=== PATIENT | female | born 1995 | race Caucasian/White ===

== ENCOUNTER 2018-03-23 17:43 | Emergency (ER) | payer OTHER ==
[2018-03-23] MEDS ORDERED: DEXAMETHASONE 10 MG/ML VIAL ONE (19:10)
--- NOTE | 2018-03-23 19:26 | EDPHYS ---
Physician Documentation [facility] Name: Maddi Silva Age: 23 yrs Sex: Female : 1995 Arrival Date: 03/23/2018 Time: 17:48 Bed 19 Private MD: Andres Lynn ED Physician Aric De La Vega HPI: 03/23 18:42 This 23 yrs old Female presents to ER via Ambulatory with complaints of jmm Fever, Strep Throat. 18:42 The patient reports fever, not measured (subjective). Onset: The symptoms/episode jmm began/occurred 1 day(s) ago. This is a 23 year old female with a history of migraines that presents to the ED with sore throat, headache, weakness beginning last night. Patient states symptoms are similar to previous episodes of strep throat. . Historical: - Allergies: 17:56 PENICILLINS; sv - PMHx: 17:56 Migraines; sv - PSHx: 17:56 None; sv - Immunization history:: Flu vaccine is up to date. - Social history:: Smoking status: Patient/guardian denies using tobacco. - Ebola Screening: : No symptoms or risks identified at this time. ROS: 18:42 Eyes: Negative for injury, pain, redness, and discharge, ENT: Negative for injury, jmm pain, and discharge, Cardiovascular: Negative for chest pain, palpitations, and edema, Respiratory: Negative for shortness of breath, cough, wheezing, and pleuritic chest pain, Abdomen/GI: Negative for abdominal pain, nausea, vomiting, diarrhea, and constipation. 18:42 Constitutional: Positive for fever. 18:42 ENT: Positive for sore throat. 18:42 Neuro: Positive for headache. 18:42 All other systems are negative. Exam: 18:42 Head/Face: atraumatic. Eyes: EOMI, no conjunctival erythema appreciated jmm 18:42 Cardiovascular: Regular rate and rhythm. No edema appreciated Respiratory: Normal respirations, no respiratory distress appreciated Abdomen/GI: Non distended, soft Back: Normal ROM Skin: General appearance color normal MS/ Extremity: Moves all extremities, no obvious deformities appreciated, no edema noted to the lower extremities Neuro: Awake and alert, normal gait Psych: Behavior is normal, Mood is normal, Patient is cooperative and pleasant 18:42 Constitutional: The patient appears in no acute distress, alert, awake. 18:42 ENT: Posterior pharynx: erythema, that is mild. Vital Signs: 17:56 BP 120 / 73; Pulse 102; Resp 18; Temp 99.3(O); Pulse Ox 98% ; Weight 129.27 kg; Height sv 5 ft. 5 in. (165.10 cm); Pain 7/10; 19:08 BP 125 / 67; Pulse 92; Resp 18; Temp 98.7; Pulse Ox 100% on R/A; lp1 17:56 Body Mass Index 47.42 (129.27 kg, 165.10 cm) sv MDM: 18:29 Patient medically screened. [facility] 19:24 Data reviewed: vital signs, nurses notes. Counseling: I had a detailed discussion with mendy the patient and/or guardian regarding: the historical points, exam findings, and any diagnostic results supporting the discharge/admit diagnosis, lab results, the need for outpatient follow up, to return to the emergency department if symptoms worsen or persist or if there are any questions or concerns that arise at home. ED course: Patient is alert and non toxic in appearance in the ED. Return precautions were given. . 03/23 17:57 Order name: Strep 03/23 17:57 Order name: Flu 03/23 18:43 Order name: Throat Culture EDMS Administered Medications: 19:08 Drug: Decadron 10 mg Route: IM; Site: left deltoid; lp1 19:37 Follow up: Response: No adverse reaction lp1 Disposition: 03/23/18 19:25 Discharged to Home. Impression: Acute pharyngitis. - Condition is Stable. - Discharge Instructions: Pharyngitis. - Prescriptions for Zithromax Z- Jorge Luis 250 mg Oral Tablet - take 1 tablet by ORAL route as directed for 5 days Day 1 - take two (2) tablets one time. Day 2, 3, 4 , 5 take one (1) tablet once daily.; 6 tablet. - Medication Reconciliation Form, Thank You Letter, Antibiotic Education, Prescription Opioid Use form. - Follow up: Andres Lynn MD; When: 2 - 3 days; Reason: Recheck today's complaints, Continuance of care, Re-evaluation by your physician. Addendum: 04/04/2018 02:50 Co-signature as Attending Physician, Aric De La Vega MD. m a2 Signatures: Dispatcher [employer] Re Saez RN RN Victoriano Price PA PA jmm Pena, Laura RN RN lp1 Aric De La Vega MD MD ma2 Corrections: (The following items were deleted from the chart) 03/23 19:40 19:25 03/23/2018 19:25 Discharged to Home. Impression: Acute pharyngitis. Condition is lp1 Stable. Forms are Medication Reconciliation Form, Thank You Letter, Antibiotic Education, Prescription Opioid Use. Follow up: Andres Lynn; When: 2 - 3 days; Reason: Recheck today's complaints, Continuance of care, Re-evaluation by your physician. mendy
--- NOTE | 2018-03-23 19:26 | ER ---
Nurse's Notes [facility] Name: Maddi Silva Age: 23 yrs Sex: Female : 1995 Arrival Date: 03/23/2018 Time: 17:48 Bed 19 Private MD: Andres Lynn Diagnosis: Acute pharyngitis Presentation: 03/23 17:53 Presenting complaint: Patient states: fever, TMax 103.6, sore throat x 1 day. sv Transition of care: patient was not received from another setting of care. Onset of symptoms was March 22, 2018. Care prior to arrival: None. 17:53 Method Of Arrival: Ambulatory sv 17:53 Acuity: KEMI 4 sv 17:54 Note Tylenol taken at 1500, was given by [facility]. sv 19:09 Risk Assessment: Do you want to hurt yourself or someone else? Patient reports no lp1 desire to harm self or others. Initial Sepsis Screen: Does the patient meet any 2 criteria? No. Patient's initial sepsis screen is negative. Does the patient have a suspected source of infection? No. Patient's initial sepsis screen is negative. Triage Assessment: 17:56 General: Appears in no apparent distress. uncomfortable, obese, Behavior is calm, sv cooperative, appropriate for age. Pain: Complains of pain in throat Pain currently is 7 out of 10 on a pain scale. Neuro: Level of Consciousness is awake, alert, obeys commands, Oriented to person, place, time, situation, Moves all extremities. Full function Gait is steady. Respiratory: Respiratory effort is even, unlabored, Respiratory pattern is regular, symmetrical. Historical: - Allergies: 17:56 PENICILLINS; sv - PMHx: 17:56 Migraines; sv - PSHx: 17:56 None; sv - Immunization history:: Flu vaccine is up to date. - Social history:: Smoking status: Patient/guardian denies using tobacco. - Ebola Screening: : No symptoms or risks identified at this time. Screenin:07 Abuse screen: Denies threats or abuse. Denies injuries from another. Nutritional ss screening: No deficits noted. Tuberculosis screening: Never had TB. Fall Risk None identified. Assessment: 18:07 General: Appears in no apparent distress. comfortable, Behavior is calm, cooperative, ss Reports fever for 12-24 hours, feeling ill for 12-24 hours. Pain: Complains of pain in throat Pain currently is 5 out of 10 on a pain scale. Quality of pain is described as sore Is continuous. Neuro: Level of Consciousness is awake, alert, obeys commands, Oriented to person, place, time, situation, Resource Engineer are equal bilaterally Reports mild dizziness. Cardiovascular: Capillary refill < 3 seconds is brisk in bilateral fingers Patient's skin is warm and dry. Respiratory: Airway is patent Respiratory effort is even, unlabored, Respiratory pattern is regular, symmetrical. GI: Patient currently denies abdominal pain, diarrhea, nausea, vomiting. : No signs and/or symptoms were reported regarding the genitourinary system. EENT: Oral mucosa is moist. Throat is reddened. Derm: Skin is intact, is healthy with good turgor, Skin is pink, warm \T\ dry. normal. Musculoskeletal: Circulation, motion, and sensation intact. Range of motion: intact in all extremities, Swelling absent. 19:08 Reassessment: Patient appears in no apparent distress at this time. Patient is alert, lp1 oriented x 3, equal unlabored respirations, skin warm/dry/pink. Complaint of sore throat, headache. Vital Signs: 17:56 BP 120 / 73; Pulse 102; Resp 18; Temp 99.3(O); Pulse Ox 98% ; Weight 129.27 kg; Height sv 5 ft. 5 in. (165.10 cm); Pain 7/10; 19:08 BP 125 / 67; Pulse 92; Resp 18; Temp 98.7; Pulse Ox 100% on R/A; lp1 17:56 Body Mass Index 47.42 (129.27 kg, 165.10 cm) sv ED Course: 17:48 Patient arrived in ED. sb2 17:49 Andres Lynn MD is Private Physician. sb2 17:54 Triage completed. sv 17:56 Arm band placed on. sv 17:57 Nicci Garcia RN is Primary Nurse. ss 17:57 Victoriano Reeves PA is PHCP. jmm 17:57 Aric De La Vega MD is Attending Physician. jmm 18:07 Patient has correct armband on for positive identification. Bed in low position. Call ss light in reach. 19:09 No provider procedures requiring assistance completed. Patient did not have IV access lp1 during this emergency room visit. 19:25 Andres Lynn MD is Referral Physician. gus Administered Medications: 19:08 Drug: Decadron 10 mg Route: IM; Site: left deltoid; lp1 19:37 Follow up: Response: No adverse reaction lp1 Outcome: 19:25 Discharge ordered by . mendy 19:36 Discharged to home ambulatory. lp1 19:36 Condition: good 19:36 Discharge instructions given to patient, Instructed on discharge instructions, follow up and referral plans. medication usage, Demonstrated understanding of instructions, follow-up care, medications, Prescriptions given X 1. 19:40 Patient left the ED. lp1 Signatures: Re Quintana RN RN Victoriano Price PA PA jmm Smirch, Shelby, RN RN Idalmis Chavira RN RN lp1 Alice Wren sb2 Corrections: (The following items were deleted from the chart) 17:57 17:56 Resp 18bpm; Pulse Ox 98%; Temp 99.3F Oral; 129.27 kg; Height 5 ft. 5 in.; BMI: sv 47.4; Pain 7/10; sv
== END 2018-03-23 19:40 | disposition home or self-care (01) ==
LOC: ER 17:43
DX: J02.9 Acute pharyngitis, unspecified (principal)
CPT/HCPCS: 87070; 87081; 87804; 96372; 99283; J1100

== ENCOUNTER 2019-12-19 08:55 | Emergency (ER) | payer OTHER ==
--- OUTSIDE RECORDS SUMMARY | 2019-12-19 08:59 | XMS REPORT | Summary of Care ---
:1995 Author Organization [facility] Address [address] [place] [address] Care Team Providers Name Role Phone Arlin Lynn Primary Care Provider Arlin Lynn Insurance Hmo Reason for Visit Reason Comments Abdominal Pain Vomiting Auth/Cert Status Reason Specialty Diagnoses / Referred By Referred To Procedures Contact Contact Emergency Medicine [facility] Em ergency Dept [address] [phone] Fax: Encounter Details Date Type Department Care Team Description 11/27/2019 - Emergency ADC-Emergency ReynoldsCiprianon R, Vomiting i n adult (Primary Dx); 11/28/2019 Department EMNP Generalized abdominal pain [address] [id number] [place] [address] [place], [place] [phone] [id number] Allergies Active Allergy Reactions Severity Noted Date Comments Penicillins Rash 05/20/2012 documented as of this encounter (statuses as of 11/28/2019) Medications Medication Sig Dispensed Refills Start Date End Date Status foLIC acid 1 mg tablet Take 1 tablet by 30 tablet 2 08/08/2016 Active mouth daily. norgestimate-ethinyl Take 1 tablet by 1 Package 3 08/09/2016 Active estradiol mouth daily. 0.18/0.215/0.25 mg-35 mcg (28) tablet naproxen (NAPROSYN) Take 1 tablet by 10 tablet 0 01/12/2019 Active 500 mg mouth 2 (two) tabletIndications: times daily with Chest pain, meals. unspecified type azithromycin 250 mg Take 1 tablet by 6 tablet 0 02/08/2019 Active tabletIndications: mouth Strep pharyngitis SEE-INSTRUCTIONS. Take 500 mg day 1, then 250 mg days 2 to 5. clindamycin 300 mg Take 1 capsule by 20 capsule 0 08/11/2019 Active capsuleIndications: mouth 3 (three) Acute pericoronitis times daily. ibuprofen 800 mg Take 1 tablet by 21 tablet 0 08/11/2019 Active tabletIndications: mouth every 8 Acute pericoronitis (eight) hours as needed for Pain (scale 4-6). proMETHazine 25 mg Take 1 tablet by 12 tablet 0 11/28/2019 Active tabletIndications: mouth every 6 Vomiting in adult (six) hours as needed for Nausea and Vomiting (N/V). documented as of this encounter (statuses as of 11/28/2019) Active Problems Problem Noted Date Other general counseling and advice for contraceptive management 08/09/2016 Well woman exam with routine gynecological exam 2016 Missed menses 08/09/2016 Irregular menstrual cycle 08/09/2016 Morbid obesity with BMI of 40.0-44.9, adult 08/09/2016 documented as of this encounter (statuses as of 11/28/2019) Resolved Problems Problem Noted Date Resolved Date Encounter for routine gynecological examination 06/06/2012 08/08/2016 Overview: ICD10 Diagnosis Term Clay Preparation Supervisor Utility Contraceptive management 06/06/2012 08/08/2016 Overview: Currently on Depo Obesity 06/06/2012 08/09/2016 Overview: ICD10 Diagnosis Term Clay Preparation Supervisor Utility documented as of this encounter (statuses as of 11/28/2019) Immunizations Name Administration Dates Next Due Tetanus/Diptheria 03/26/2011 documented as of this encounter Social History Tobacco Use Types Packs/Day Years Used Date Never Smoker Smokeless Tobacco: Never Used Alcohol Use Drinks/Week oz/Week Comments No Sex Assigned at Date Recorded Not on file COVID-19 Exposure Response Date Recorded In the last month, have you been in contact Unable to assess 11/27/2019 9:17 PM CDT with someone who was confirmed or suspected to have Coronavirus / COVID-19? documented as of this encounter Last Filed Vital Signs Vital Sign Reading Time Taken Comments Blood Pressure 117/62 11/27/2019 11:00 PM CDT Pulse 67 11/27/2019 11:00 PM CDT Temperature 37.3 C (99.1 F) 11/27/2019 9:22 PM CDT Respiratory Rate 18 11/27/2019 11:00 PM CDT Oxygen Saturation 98% 11/27/2019 11:00 PM CDT Inhaled Oxygen Concentration - - Weight 114.8 kg (253 lb) 11/27/2019 9:22 PM CDT Height 165.1 cm (5' 5") 11/27/2019 9:22 PM CDT Body Mass Index 42.1 11/27/2019 9:22 PM CDT documented in this encounter Discharge Instructions Gayatri Maier EMNP - 11/28/2019NO LIFE-THREATENING FINDINGS ON TODAY'S EXAM. SPECIAL INSTRUCTIONS: 1. May take 2 tylenol every 4 hours for pain 2. May take motrin 600mg every 6 hours with food for pain 3. May take pepcid 20mg every 12 hours 4. See attached information 5. [place] soft diet FOLLOW-UP RECOMMENDATIONS: RECOMMEND FOLLOW-UP WITH A PRIMARY CARE PROVIDER OR SPECIALIST IN 2-5 DAYS, ESPECIALLY IF NO IMPROVEMENT IN SYMPTOMS. TO FOLLOW-UP WITHIN THE [facility], TRY THESE OPTIONS (CLINIC APPOINTMENTS AVAILABLE ON [id number] BASIS): 1. SCHEDULE AN APPOINTMENT ONLINE AT WWW.[facility] 2. OR CALL THE [facility] ACCESS CENTER AT OR 3. OR CALL YOUR [facility] PHYSICIAN'S OFFICE DIRECTLY IF YOU ARE ALREADY AN ESTABLISHED [facility] PATIENT. OR, YOU MAY FOLLOW-UP WITH A PROVIDER OF YOUR CHOICE, SUCH : 1. A PHYSICIAN OF YOUR CHOICE 2. [facility], . LOCATIONS IN [facility] 3. [facility], [address], [place]; [phone] RETURN TO ER FOR WORSENING OF SYMPTOMS. AttachmentsThe following attachments cannot be sent through Care Everywhere. Vomiting and Diarrhea,Self-Care for (Mexican)Vomiting or Diarrhea (Adult), Diet for (Mexican)Abdominal Pain, Adult (Mexican)Promethazine tablets (Mexican) documented in this encounter ED Notes Aditi Vickers RN - 11/27/2019 9:24 PM CDTPatient presents as an alert and oriented female that has been experiencing abdominal pain and vomiting for one day. The patient states that the pain is exacerbated upon inspiration. The patient statesthat she feels anxious, and that the pain makes her not want to take a deep breath. Patient is not in any distress at this time. documented in this encounter Miscellaneous Notes ED Nurse Note - Aditi Vickers RN - 11/28/2019 12:19 AM CDTPt given printed and verbal discharge instructions regarding nausea and vomiting, encouraged hydration. Prescriptions provided. Pt verbalized understanding of instructions, pt awake alert oriented, resp reg unlabored, skin w/d, color appropriate for race, moves all ext well,pt encouraged to follow up with PCP. Advised to seek medical attention for new/prolonged/worsening of symptoms. No adverse reaction to meds given in ER noted upon discharge. PIV d'cd, dressing to site, catheter in tact. Awake, alert oriented, resp reg unlabored, skin w/d, pt leaving amb with steady gait, in no apparent distress. D Nurse Note - Aditi Vickers RN - 11/27/2019 10:19 PM CDTPatient stated that she is unable to provide a urine sample at this time. documented in this encounter Plan of Treatment Health Maintenance Due Date Last Done Comments VARICELLA VACCINES (1 of 2 - 01/06/1996 2-dose childhood series) HPV VACCINES (1 - 2-dose 2006 series) Depression Screening 2007 DTaP,Tdap,and Td Vaccines (1 2014 - Tdap) CHLAMYDIA SCREENING 08/08/2017 08/08/2016, 06/06/2012, 02/27/2011 PAP SMEAR 08/09/2019 08/08/2016 INFLUENZA VACCINE (#1) 2019 PNEUMOCOCCAL 0-64 YEARS Aged Out No longe r eligible based COMBINED SERIES on patient's age to complete this to pic documented as of this encounter Procedures Procedure Name Priority Date/Time Associated Diagnosis Comme nts POCT TEST SANTOS 11/27/2019 11:31 Generalized Resu lts for this PM CDT abdominal pain procedure are in the results section. URINALYSIS STAT 11/27/2019 11:31 Generalized Results for this PM CDT abdominal pain procedure are in the results section. CBC WITH DIFF STAT 11/27/2019 10:01 Generalized Results fo r this PM CDT abdominal pain procedure are in the results section. COMP. METABOLIC STAT 11/27/2019 10:01 Generalized Results for this PANEL (10070) PM CDT abdominal pain procedure ar e in the results section. LIPASE STAT 11/27/2019 10:01 Generalized Results for this PM CDT abdominal pain procedure are in the results section. documented in this encounter Results POCT TEST (11/27/2019 11:31 PM CDT) Pathologist Sig nature POCT PREG negative On board controls acceptable positive with C Line POCT PREG LOT # [id number] POCT PREG TEST DATE 10-23-2020 Specimen Urine - URINE, CLEAN CATCH URINALYSIS (11/27/2019 11:31 PM CDT) Pathologist Sig nature APPEARANCE Clear Clear [facility] COLOR Yellow Yellow [facility] PH 6.0 4.8 - 8.0 [facility] SP GRAVITY 1.028 1.003 - 1.030 [facility] GLU U QUAL Normal Normal [facility] BLOOD Negative Negative [facility] KETONES 5 mg/dL (A) Negative [facility] PROTEIN 30 mg/dL (A) Negative [facility] UROBILIN Normal Normal [facility] BILIRUBIN Negative Negative [facility] NITRITE Negative Negative [facility] LEUK ALEKSEY Negative Negative [facility] RBC/HPF 3 0 - 3 HPF [facility] WBC/HPF 1 0 - 5 HPF [facility] BACTERIA Few (A) Negative [facility] MUCOUS Moderate (A) Negative LPF [facility] SQ EPITH 3 HPF [facility] Specimen Urine - URINE, CLEAN CATCH Performing Organization Address City/State/Zipcode Phone Number [facility] CLIA: [id number] [place] [address] LIPASE (11/27/2019 10:01 PM CDT) Pathologist Sig nature LIPASE 41 0 - 220 U/L [facility] Specimen Blood - VENOUS Performing Organization Address City/State/Zipcode Phone Number [facility] CLIA: [id number] [place] [address] LABORATORY [address] [facility] COMP. METABOLIC PANEL (02384) (11/27/2019 10:01 PM CDT) Pathologist Sig nature NA 141 135 - 145 mmol/L [facility] K 4.6 3.5 - 5.0 mmol/L [facility] CL 107 98 - 108 mmol/L [facility] CO2 TOTAL 28 23 - 31 mmol/L [facility] AGAP 6 2 - 16 [facility] BUN 9 7 - 23 mg/dL [facility] GLUCOSE 107 70 - 110 mg/dL [facility] CREATININE 0.93 0.50 - 1.04 [facility] mg/dL [facility] TOTAL BILI 0.5 0.1 - 1.1 mg/dL [facility] CALCIUM 9.0 8.6 - 10.6 mg/dL [facility] T PROTEIN 8.0 6.3 - 8.2 g/dL [facility] ALBUMIN 4.2 3.5 - 5.0 g/dL [facility] ALK PHOS 97 34 - 122 U/L [facility] ALTv 20 5 - 35 U/L [facility] AST(SGOT) 26 13 - 40 U/L [facility] eGFR Calculation 74.1 mL/min/1.73m2 [facility] (Non-) [facility] LABORATOR Y eGFR Calculation 89.8 mL/min/1.73m2 [facility] () [facility] Specimen Blood - VENOUS Narrative Performed At Association of Glomerular Filtration Rate (GFR) [facility] and Staging of Kidney Disease* + + +- + | GFR (mL/min/1.73 m2) | With Kidney Damage | Without Kidney Damage + + +- + | >90 | Stage one | Normal + + +- + | 60-89 | Stage two | Decreased GFR + + +- + | 30-59 | Stage three | Stage three + + +- + | 15-29 | Stage four | Stage four + + +- + | <15 (or dialysis) | Stage five | Stage five + + +- + *Each stage assumes the associated GFR level has been in effect for at least three months. Stages 1 to 5, with or without kidney disease, indicate chronic kidney disease. Notes: Determination of stages one and two (with eGFR >59mL/min/1.73 m2) requires estimation of kidney damage for at least three months as defined by structural or functional abnormalities of the kidney, manifested by either: Pathological abnormalities or Markers of kidney damage (including abnormalities in the composition of the blood or urine or abnormalities in imaging tests). Performing Organization Address City/State/Zipcode Phone Number [facility] CLIA: [id number] [place] [address] CBC WITH DIFF (11/27/2019 10:01 PM CDT) Pathologist Sig nature WBC 9.54 4.30 - 11.10 [facility] 10*3/L [facility] RBC 4.75 3.93 - 5.25 [facility] 10*6/L [facility] HGB 13.5 11.6 - 15.0 [facility] g/dL [facility] HCT 41.2 35.7 - 45.2 % [facility] MCV 86.7 80.6 - 95.5 fL [facility] MCH 28.4 25.9 - 32.8 pg [facility] MCHC 32.8 31.6 - 35.1 [facility] g/dL [facility] RDW-SD 41.1 39.0 - 49.9 fL [facility] RDW-CV 13.0 12.0 - 15.5 % [facility] PLT 295 166 - 358 [facility] 10*3/L [facility] MPV 10.1 9.5 - 12.9 fL [facility] NRBC/100 WBC 0.0 0.0 - 10.0 /100 [facility] WBCs [facility] NRBC x10^3 <0.01 10*3/L [facility] GRAN MAT (NEUT) % 83.6 % [facility] IMM GRAN % 0.40 % [facility] LYMPH % 13.1 % [facility] MONO % 2.5 % [facility] EOS % 0.0 % [facility] BASO % 0.4 % [facility] GRAN MAT x10^3(ANC) 7.97 (H) 1.88 - 7.09 [place] [address]/[facility] LABORATORY IMM GRAN x10^3 0.04 0.00 - 0.[address] LABORATORY LYMPH x10^3 1.25 (L) 1.32 - 3.[address] LABORATORY MONO x10^3 0.24 (L) 0.33 - 0.[address] LABORATORY EOS x10^3 <0.03 (L) 0.03 - 0.[address] LABORATORY BASO x10^3 0.04 0.01 - 0.[address] LABORATORY Specimen Blood - VENOUS Performing Organization Address City/State/Zipcode Phone Number [facility] CLIA: [id number] [place] [address] documented in this encounter Visit Diagnoses Diagnosis Vomiting in adult - Primary Vomiting alone Generalized abdominal pain Abdominal pain, generalized documented in this encounter Administered Medications Medication Order MAR Action Action Date Dose Rate Site famotidine (PEPCID (PF)) injection Given 11/27/2019 11:37 PM CDT 20 mg 20 mg 20 mg, Slow IV Push, ONCE, 1 dose, Sun11/28/19 at 0030, SANTOS ketorolac (TORADOL) injection 15 mg Given 11/27/2019 11:37 PM CDT 15 mg 15 mg, Slow IV Push, ONCE, 1 dose, Sun11/28/19 at 0030, SANTOS, front desk team member approving Restricted medication: GAYATRI REYNOLDS NaCl 0.9% (NS) bolus infusion New Bag 11/27/2019 10:17 PM CDT 1,000 mL 999 mL/hr 1,000 mL at 999 mL/hr, 1,000 mL, IV Infusion, ONCE, 1 dose, [facility] 11/27/19 at 2200, SANTOS ondansetron (ZOFRAN (PF)) injection 4 mg Given 11/27/2019 10:15 PM CDT 4 mg 4 mg, Slow IV Push, ONCE, 1 dose, Chandrika 11/27/19 at 2300, SANTOS documented in this encounter Insurance Payer Benefit Plan / Subscriber ID Effective Dates Phone Addre ss Type Group [facility] [id number] 2019-Presen Medicaid COMM PLAN - t MANAGED MEDICAID documented as of this encounter Advance Directives Type Date Recorded Patient Selling Underwriter Explanati on Advance Directives and Living Will Power of Waiter/Waitress Informal
--- OUTSIDE RECORDS SUMMARY | 2019-12-19 08:59 | XMS REPORT | Continuity of Care Document ---
:1995 Author Organization [facility] t Address [address] [place] [address] Care Team Providers Name Role Phone Crow Martinez Attending Clinician Sophy Hernandez MD Attending Clinician Problems This patient has no known problems. Allergies, Adverse Reactions, Alerts This patient has no known allergies or adverse reactions. Medications This patient has no known medications. Procedures This patient has no known procedures. Encounters Start End Encounter Admission Attending Care Care Encounter Source Date/Time Date/Time Type Type Clinicians Facility Department ID 2019-11-27 2019-11-28 Emergency [place] [id number] 21:29:00 00:23:00 Gayatri Portillo [id number] [place] [id number] [place] [id number] [id number] 2019-08-11 2019-08-[phone] 03:38:21 04:19:00 Orly oPrtillo [id number] [place] [id number] [place] [phone] [id number] Results This patient has no known results.
--- NOTE | 2019-12-19 09:32 | EDPHYS ---
Physician Documentation [facility] Name: Maddi Silva Age: 24 yrs Sex: Female : 1995 Arrival Date: 12/19/2019 Time: 08:59 Bed 13 Private MD: ED Physician Perez Robertson HPI: 12/18 09:34 This 24 yrs old Female presents to ER via Ambulatory with complaints of Ear jr8 Pain, Sore Throat, Toothache. 09:34 Patient stated that her throat has been sore and now having toothache on right lower jr8 jaw radiating to ear. Denies fevers at this time . Onset: The symptoms/episode began/occurred gradually, 2 day(s) ago. Severity of symptoms: At their worst the symptoms were mild in the emergency department the symptoms are unchanged. The patient has not experienced similar symptoms in the past. The patient has not recently seen a physician. [employer] GUID[employer] COUNSELOR: :30 LMP N/A - iw Historical: - Allergies: 09:11 PENICILLINS; iw - Home Meds: :11 None [Active]; iw - PMHx: 09:11 Migraines; iw - PSHx: 09:11 None; iw - Immunization history:: Adult Immunizations up to date. - Social history:: Smoking status: Patient denies any tobacco usage or history of. ROS: 09:34 Eyes: Negative for injury, pain, redness, and discharge, Neck: Negative for injury, jr8 pain, and swelling, Cardiovascular: Negative for chest pain, palpitations, and edema, Respiratory: Negative for shortness of breath, cough, wheezing, and pleuritic chest pain, Abdomen/GI: Negative for abdominal pain, nausea, vomiting, diarrhea, and constipation, Back: Negative for injury and pain, MS/Extremity: Negative for injury and deformity, Skin: Negative for injury, rash, and discoloration, Neuro: Negative for headache, weakness, numbness, tingling, and seizure. 09:34 ENT: Positive for dental pain, ear pain, sore throat. Exam: :34 Eyes: Pupils equal round and reactive to light, extra-ocular motions intact. Lids and jr8 lashes normal. Conjunctiva and sclera are non-icteric and not injected. Cornea within normal limits. Periorbital areas with no swelling, redness, or edema. Neck: Trachea midline, no thyromegaly or masses palpated, and no cervical lymphadenopathy. Supple, full range of motion without nuchal rigidity, or vertebral point tenderness. No Meningismus. Cardiovascular: Regular rate and rhythm with a normal S1 and S2. No gallops, murmurs, or rubs. Normal PMI, no JVD. No pulse deficits. Respiratory: Lungs have equal breath sounds bilaterally, clear to auscultation and percussion. No rales, rhonchi or wheezes noted. No increased work of breathing, no retractions or nasal flaring. Abdomen/GI: Soft, non-tender, with normal bowel sounds. No distension or tympany. No guarding or rebound. No evidence of tenderness throughout. Back: No spinal tenderness. No costovertebral tenderness. Full range of motion. Skin: Warm, dry with normal turgor. Normal color with no rashes, no lesions, and no evidence of cellulitis. MS/ Extremity: Pulses equal, no cyanosis. Neurovascular intact. Full, normal range of motion. Neuro: Awake and alert, GCS 15, oriented to person, place, time, and situation. Cranial nerves II-XII grossly intact. Motor strength 5/5 in all extremities. Sensory grossly intact. Cerebellar exam normal. Normal gait. 09:34 ENT: Exam is negative for earache, ear discharge, TM abnormalities, nasal discharge, Mouth: Lips: moist, Oral mucosa: pink and intact, moist, Gums: pink, swollen, on the lower right second molar, Tongue: is moist, Posterior pharynx: Airway: patent, Tonsils: with erythema, no enlargement, no exudate, no ulcerations, Uvula: midline, non-edematous, no erythema, swelling, is not appreciated, erythema, that is mild, Dental exam: Patient has decayed right second molar present with gum swelling right side . Vital Signs: 09:09 BP 119 / 62; Pulse 93; Resp 16; Temp 98.4(O); Pulse Ox 99% on R/A; Weight 114.76 kg; iw Height 5 ft. 5 in. (165.10 cm); Pain 8/10; 09:09 Body Mass Index 42.10 (114.76 kg, 165.10 cm) iw MDM: 09:26 Patient medically screened. jr8 09:30 Data reviewed: vital signs, nurses notes, and as a result, I will discharge patient. jr8 Data interpreted: Pulse oximetry: on room air is 99 %. Interpretation: normal. Counseling: I had a detailed discussion with the patient and/or guardian regarding: the historical points, exam findings, and any diagnostic results supporting the discharge/admit diagnosis, the need for outpatient follow up, a dentist, a family practitioner, to return to the emergency department if symptoms worsen or persist or if there are any questions or concerns that arise at home. Administered Medications: No medications were administered Disposition: 17:04 Co-signature as Attending Physician, Perez Robertson MD I agree with the assessment and kdr plan of care. Disposition: 12/19/19 09:31 Discharged to Home. Impression: Periapical abscess without sinus, Acute pharyngitis. - Condition is Stable. - Discharge Instructions: Dental Abscess, Pharyngitis, Dental Extraction, Care After. - Prescriptions for Cephalexin 500 mg Oral Capsule - take 1 capsule by ORAL route every 12 hours for 10 days; 20 capsule. Clindamycin HCl 300 mg Oral Capsule - take 1 capsule by ORAL route every 6 hours for 10 days; 40 capsule. - Work release form, Medication Reconciliation Form, Thank You Letter, Antibiotic Education, Prescription Opioid Use form. - Follow up: Private Physician; When: 2 - 3 days; Reason: Recheck today's complaints, Continuance of care, Re-evaluation by your physician. - Problem is new. - Symptoms have improved. Signatures: Perez Robertson MD MD kdr Bri Suazo RN RN iw Archie Penaloza PA PA jr8 Corrections: (The following items were deleted from the chart) 09:40 09:31 12/19/2019 09:31 Discharged to Home. Impression: Periapical abscess without iw sinus; Acute pharyngitis. Condition is Stable. Forms are Medication Reconciliation Form, Thank You Letter, Antibiotic Education, Prescription Opioid Use. Follow up: Private Physician; When: 2 - 3 days; Reason: Recheck today's complaints, Continuance of care, Re-evaluation by your physician. Problem is new. Symptoms have improved. jr8
--- NOTE | 2019-12-19 09:32 | ER ---
Nurse's Notes [facility] Name: Maddi Silva Age: 24 yrs Sex: Female : 1995 Arrival Date: 12/19/2019 Time: 08:59 Bed 13 Private MD: Diagnosis: Periapical abscess without sinus;Acute pharyngitis Presentation: 12/18 09:09 Chief complaint: Patient states: right sided jaw pain, has a bad tooth on bottom right, iw also has sore throat and difficulty swallowing X 2 days. Coronavirus screen: At this time, the client does not indicate any symptoms associated with coronavirus-19. Ebola Screen: Patient negative for fever greater than or equal to 101.5 degrees Fahrenheit, and additional compatible Ebola Virus Disease symptoms Patient denies exposure to infectious person. Patient denies travel to an Ebola-affected area in the 21 days before illness onset. No symptoms or risks identified at this time. Initial Sepsis Screen: Does the patient meet any 2 criteria? No. Patient's initial sepsis screen is negative. Does the patient have a suspected source of infection? No. Patient's initial sepsis screen is negative. Risk Assessment: Do you want to hurt yourself or someone else? Patient reports no desire to harm self or others. Onset of symptoms was November 16, 2019. 09:09 Method Of Arrival: Ambulatory iw 09:09 Acuity: KEMI 4 iw Triage Assessment: 09:15 General: Appears in no apparent distress. Behavior is calm, cooperative. iw STORY WRITER: 09:30 LMP N/A - iw Historical: - Allergies: 09:11 PENICILLINS; iw - Home Meds: 09:11 None [Active]; iw - PMHx: 09:11 Migraines; iw - PSHx: 09:11 None; iw - Immunization history:: Adult Immunizations up to date. - Social history:: Smoking status: Patient denies any tobacco usage or history of. Screenin:39 Abuse screen: Denies threats or abuse. Denies injuries from another. Nutritional iw screening: No deficits noted. Tuberculosis screening: No symptoms or risk factors identified. Fall Risk None identified. Assessment: 09:15 General: Appears in no apparent distress. Behavior is calm, cooperative. Pain: iw Complains of pain in right cheek and right jaw and lower right second molar and lower right third molar. Neuro: Level of Consciousness is awake, alert, obeys commands, Oriented to person, place, time, situation, Moves all extremities. Full function. Cardiovascular: Patient's skin is warm and dry. Respiratory: Respiratory effort is even, unlabored, Respiratory pattern is regular, symmetrical. EENT: Oral mucosa is moist. Throat is clear. Derm: Skin is intact, is healthy with good turgor. Musculoskeletal: Range of motion: intact in all extremities. Vital Signs: 09:09 BP 119 / 62; Pulse 93; Resp 16; Temp 98.4(O); Pulse Ox 99% on R/A; Weight 114.76 kg; iw Height 5 ft. 5 in. (165.10 cm); Pain 8/10; 09:09 Body Mass Index 42.10 (114.76 kg, 165.10 cm) iw ED Course: 08:59 Patient arrived in ED. ds1 09:01 Bri Suazo, RN is Primary Nurse. iw 09:10 Triage completed. iw 09:10 Patient has correct armband on for positive identification. iw 09:11 Arm band placed on. iw 09:26 Archie Penaloza PA is PHCP. jr8 09:26 Perez Robertson MD is Attending Physician. jr8 09:39 No provider procedures requiring assistance completed. Patient did not have IV access iw during this emergency room visit. Administered Medications: No medications were administered Outcome: 09:31 Discharge ordered by . jr8 09:39 Discharged to home ambulatory. iw 09:39 Condition: good 09:39 Discharge instructions given to patient, Instructed on discharge instructions, follow up and referral plans. medication usage, Demonstrated understanding of instructions, follow-up care, medications, Prescriptions given X 2. 09:40 Patient left the ED. iw Signatures: Sharifa Singh ds1 Bri Suazo, GERALDO RN iw Archie Penaloza PA PA jr8
[2019-12-19 09:44] VITALS: BP 119/62; TEMP 98.4; O2SAT 99
== END 2019-12-19 09:40 | disposition home or self-care (01) ==
LOC: ER 08:55
DX: K04.7 Periapical abscess without sinus (principal); Z88.0 Allergy status to penicillin
CPT/HCPCS: 99282

== ENCOUNTER → 2023-04-12 | Emergency (ER) | payer OTHER, SELFPAY ==
[~2023-04-12] MED LIST: ASPIRIN 81 MG CHEWABLE TABLET ONE; AZITHROMYCIN 250 MG TAB ONE; FAMOTIDINE 20 MG TAB ONE; METHYLPREDNISOLONE 125 MG INJ ONE; NA CHLORIDE 0.9% 1,000 ML ONE; predniSONE 20 MG TAB ONE
[2023-04-12 11:43] LABS: Absolute Lymphocytes (CBC) 2.7 K/uL (0.7-4.9); Hematocrit 39.2 % (36.0-45.0); Lymphocytes % 37.6 % (15.3-44.8); MCV 83.9 fL (80-100); MPV 7.9 fL (7.6-11.3); Platelets 331 thou/uL (152-406); RBC Red Blood Cell Count 4.67 M/uL (3.86-4.86)
[2023-04-12 11:58] LABS: ALT/SGPT 28 U/L (13-56); AST/SGOT 20 U/L (15-37); Albumin 3.4 g/dL (3.4-5.0); Alkaline Phosphatase 76 U/L (45-117); BUN Blood Urea Nitrogen 10 mg/dL (7-18); Bicarbonate 28 mEq/L (21-32); Bilirubin Total 0.3 mg/dL (0.2-1.0); C-Reactive Protein 6.31 mg/L (<3.00); Glomerular Filtration Rate 81 ml/min (=/>90); Glucose Level 85 mg/dL (74-106); Magnesium 2.1 mg/dL (1.6-2.4); NT PRO-BNP 18 pg/mL (<125); Protein, Total 8.3 g/dL (6.4-8.2); Sodium Level 137 mEq/L (136-145); Troponin High Sensitivity 6.3 pg/mL (<58.9)
[2023-04-12 11:59] LABS: Bilirubin Direct < 0.1 mg/dL (0-0.2); Bilirubin Indirect, Calculated ND mg/dL (0.2-0.8)
--- NOTE | 2023-04-12 12:57 | EDPHYS ---
Physician Documentation [facility] Name: Maddi Silva Age: 28 yrs Sex: Female : 1995 Arrival Date: 04/12/2023 Time: 10:50 Bed 5 Private MD: ED Physician Sam Lechuga HPI: 04/12 12:04 This 28 yrs old Female presents to ER via EMS with complaints of Shortness Of steven Breath, Chest Pain. 12:04 The patient has shortness of breath at rest, with light activity. Onset: The steven symptoms/episode began/occurred 6 day(s) ago. Duration: The symptoms are continuous, and are steadily getting worse. The patient's shortness of breath is aggravated by nothing. Associated signs and symptoms: Pertinent positives: chest pain, non-productive cough, dizziness. Severity of symptoms: At their worst the symptoms were mild in the emergency department the symptoms are unchanged. The patient has experienced similar episodes in the past, a few times. Historical: - Allergies: 11:10 PENICILLINS; kc6 - PMHx: 11:10 Migraines; Anxiety; Depressive disorder; Bipolar disorder; kc6 - PSHx: 11:10 None; kc6 - Immunization history:: Adult Immunizations up to date. - Social history:: Smoking status: Patient denies any tobacco usage or history of. - Family history:: not pertinent. ROS: 12:04 Constitutional: Negative for fever, chills, and weight loss, Eyes: Negative for injury, steven pain, redness, and discharge, ENT: Negative for injury, pain, and discharge, Neck: Negative for injury, pain, and swelling, Cardiovascular: Negative for chest pain, palpitations, and edema, Abdomen/GI: Negative for abdominal pain, nausea, vomiting, diarrhea, and constipation, Back: Negative for injury and pain, : Negative for injury, bleeding, discharge, and swelling, MS/Extremity: Negative for injury and deformity, Skin: Negative for injury, rash, and discoloration, Neuro: Negative for headache, weakness, numbness, tingling, and seizure, Psych: Negative for depression, anxiety, suicide ideation, homicidal ideation, and hallucinations, Allergy/Immunology: Negative for hives, rash, and allergies, Endocrine: Negative for neck swelling, polydipsia, polyuria, polyphagia, and marked weight changes, Hematologic/Lymphatic: Negative for swollen nodes, abnormal bleeding, and unusual bruising, 12:04 Constitutional: Positive for body aches, chills, fatigue, fever, malaise, 12:04 Respiratory: Positive for cough, with no reported sputum, Exam: 12:04 Constitutional: This is a well developed, well nourished patient who is awake, alert, steven and in no acute distress. Head/Face: Normocephalic, atraumatic. Eyes: Pupils equal round and reactive to light, extra-ocular motions intact. Lids and lashes normal. Conjunctiva and sclera are non-icteric and not injected. Cornea within normal limits. Periorbital areas with no swelling, redness, or edema. ENT: Nares patent. No nasal discharge, no septal abnormalities noted. Tympanic membranes are normal and external auditory canals are clear. Oropharynx with no redness, swelling, or masses, exudates, or evidence of obstruction, uvula midline. Mucous membranes moist. Neck: Trachea midline, no thyromegaly or masses palpated, and no cervical lymphadenopathy. Supple, full range of motion without nuchal rigidity, or vertebral point tenderness. No Meningismus. Chest/axilla: Normal chest wall appearance and motion. Nontender with no deformity. No lesions are appreciated. Cardiovascular: Regular rate and rhythm with a normal S1 and S2. No gallops, murmurs, or rubs. Normal PMI, no JVD. No pulse deficits. Abdomen/GI: Soft, non-tender, with normal bowel sounds. No distension or tympany. No guarding or rebound. No evidence of tenderness throughout. Back: No spinal tenderness. No costovertebral tenderness. Full range of motion. Skin: Warm, dry with normal turgor. Normal color with no rashes, no lesions, and no evidence of cellulitis. MS/ Extremity: Pulses equal, no cyanosis. Neurovascular intact. Full, normal range of motion. Neuro: Awake and alert, GCS 15, oriented to person, place, time, and situation. Cranial nerves II-XII grossly intact. Motor strength 5/5 in all extremities. Sensory grossly intact. Cerebellar exam normal. Normal gait. Psych: Awake, alert, with orientation to person, place and time. Behavior, mood, and affect are within normal limits. 12:04 ECG was reviewed by the Attending Physician. 12:04 Respiratory: the patient does not display signs of respiratory distress, Respirations: normal, Breath sounds: bronchial sounds, are not appreciated, decreased breath sounds, are not appreciated, rhonchi, are not appreciated, stridor, is not appreciated, Respiratory rate: 18 Vital Signs: 11:08 BP 131 / 87; Pulse 94; Resp 20 S; Temp 98.5(O); Pulse Ox 100% on R/A; Weight 123.83 kg kc6 (R); Height 5 ft. 4 in. (R); 11:51 BP 147 / 81; Pulse 91; Resp 18 S; Pulse Ox 98% on R/A; kc6 11:08 Body Mass Index 46.86 (123.83 kg, 162.56 cm) kc6 MDM: 11:05 Patient medically screened. steven 12:08 Differential diagnosis: Anemia Anxiety Reaction Bronchitis Chronic Obstructive steven Pulmonary Disease Myocardial Infarction pneumonia, Pneumothorax Psychogenic pulmonary edema, Pulmonary Embolism reactive airway disease, Sepsis Unstable Angina. Antibiotic administration: The patient is discharged and will get outpatient antibiotics, Zithromax. Immunization status:. Data reviewed: vital signs, nurses notes, lab test result(s), EKG, radiologic studies, CT scan, plain films. Consideration of Admission/Observation Escalation of care including admission/observation considered. I considered the following discharge prescriptions or medication management in the emergency department Medications were administered in the Emergency Department. See MAR. Test considered but Not performed: Ultrasound no venous usg. 04/12 11:09 Order name: Basic Metabolic Panel; Complete Time: 12:02 04/12 11:09 Order name: CBC with Diff; Complete Time: 12:02 04/12 11:09 Order name: D-Dimer; Complete Time: 12:02 04/12 11:09 Order name: LFT's; Complete Time: 12:02 04/12 11:09 Order name: Magnesium; Complete Time: 12:02 04/12 11:09 Order name: NT PRO-BNP; Complete Time: 12:02 04/12 11:09 Order name: Troponin HS; Complete Time: 12:02 04/12 11:09 Order name: CRP; Complete Time: 12:02 04/12 11:09 Order name: XRAY Chest (1 view) 04/12 12:03 Order name: CT Chest For PE Angio 04/12 11:09 Order name: EKG; Complete Time: 11: [facility] 04/12 11:09 Order name: Cardiac monitoring; Complete Time: : [facility] 04/12 11:09 Order name: EKG - Nurse/Tech; Complete Time: : [facility] 04/12 11:09 Order name: IV Saline Lock; Complete Time: : [facility] 04/12 11:09 Order name: Labs collected and sent; Complete Time: [facility] 04/12 11: Order name: O2 Per Protocol; Complete Time: : [facility] 04/12 11: Order name: O2 Sat Monitoring; Complete Time: : [facility] EC:04 Rate is 72 beats/min. Rhythm is regular. QRS Arp is Normal. AL interval is shortened steven at 102 msec. QRS interval is normal. QT interval is normal. No Q waves. T waves are Normal. No ST changes noted. Clinical impression: NSR w/ Non-specific ST/T Changes and No evidence of ischemia. Interpreted by me. Reviewed by me. Administered Medications: 11:33 Drug: NS 0.9% IV 1000 ml IV at 1 bolus Per protocol; 1000 mL bolus Route: IV; Rate: 1 kc6 bolus; Site: right antecubital; 13:28 Follow up: IV Status: Completed infusion me1 11:33 Drug: AZITHromycin PO 500 mg PO once Route: PO; kc6 12:46 Follow up: Response: No adverse reaction kc6 11:33 Drug: Famotidine PO 40 mg PO once Route: PO; kc6 12:46 Follow up: Response: No adverse reaction kc6 11:33 Drug: Aspirin PO Chewable Tablet 162 mg PO once Route: PO; kc6 12:46 Follow up: Response: No adverse reaction kc6 11:33 Drug: predniSONE PO 60 mg PO once Route: PO; kc6 12:46 Follow up: Response: No adverse reaction kc6 11:33 Drug: MethylPrednisoLONE IVP 125 mg IVP once Route: IVP; Site: right antecubital; kc6 12:46 Follow up: Response: No adverse reaction kc6 Disposition Summary: 04/12/23 12:57 Discharge Ordered Notes: Location: Home steven Problem: new steven Symptoms: have improved steven Condition: Stable steven Diagnosis - SARS-associated coronavirus as the cause of diseases classified elsewhere steven - Acute upper respiratory infection, unspecified steven - Cough steven Followup: [facility] - With: Private Physician - When: 2 - 3 days - Reason: Recheck today's complaints, Continuance of care, Re-evaluation by your physician Followup: steven - With: Thomas Helms MD - When: 2 - 3 days - Reason: Recheck today's complaints, Re-evaluation by your physician Discharge Instructions: - Discharge Summary Sheet steven - Cool Mist Vaporizer steven - Aspirin and Your Heart steven - Cough, Adult steven - COVID-19 steven - How to Protect Yourself and Others - [facility] (05/20/2021) steven - 10 Things You Can Do to Manage Your COVID-19 Symptoms at Home - [facility] (10/08/2020) steven - COVID-19: What to Do If You Are Sick - [facility] (06/14/2021) [facility] Forms: - Medication Reconciliation Form [facility] - Thank You Letter steven - Antibiotic Education steven - Prescription Opioid Use steven - Patient Portal Instructions steven - Leadership Thank You Letter [facility] - Work release form me1 Prescriptions: - budesonide-formoterol 160-4.5 mcg/actuation Inhalation HFA Aerosol Inhaler - inhale 2 inhalation INHALATION route every 12 hours; 1 unit; Refills: 0, [facility] Product Selection Permitted - Pepcid 20 mg Oral tablet - take 1 tablet ORAL route every 12 hours for 21 days; 42 tablet; Refills: 0, [facility] Product Selection Permitted - Prednisone 20 mg Oral tablet - take 3 tablets ORAL route once daily for 4 days; 12 tablet; Refills: 0, Product [facility] Selection Permitted - Tessalon Perles 100 mg Oral capsule - take 2 capsule ORAL route every 8 hours As needed; 30 capsule; Refills: 0, [facility] Product Selection Permitted - Zithromax 500 mg Oral tablet - take 1 tablet ORAL route once daily for 5 days; 5 tablet; Refills: 0, Product [facility] Selection Permitted Signatures: Dispatcher [employer] Sam Vides MD MD cha Campbell, Kaitlyn, RN RN kc6 Lucero Zhao RN me1
--- NOTE | 2023-04-12 12:57 | RAD REPORT ---
EXAM DESCRIPTION: Nevin Single View04/12/2023 11:21 am CLINICAL HISTORY: Chest pain COMPARISON: none FINDINGS: The lungs appear clear of acute infiltrate. The heart is normal size IMPRESSION: No acute abnormalities displayed
--- NOTE | 2023-04-12 12:57 | ER ---
Nurse's Notes [facility] Name: Maddi Silva Age: 28 yrs Sex: Female : 1995 Arrival Date: 04/12/2023 Time: 10:50 Bed 5 Private MD: Diagnosis: SARS-associated coronavirus as the cause of diseases classified elsewhere;Acute upper respiratory infection, unspecified;Cough Presentation: 04/12 11:08 Chief complaint: EMS states: pt was diagnosed 1 week ago with covid. pt went back to [employer] work today and became SOB, with chest pain on inspiration and dizziness. Coronavirus screen: At this time, the client does not indicate any symptoms associated with coronavirus-19. Ebola Screen: No symptoms or risks identified at this time. Initial Sepsis Screen: Does the patient meet any 2 criteria? No. Patient's initial sepsis screen is negative. Does the patient have a suspected source of infection? No. Patient's initial sepsis screen is negative. Risk Assessment: Do you want to hurt yourself or someone else? Patient reports no desire to harm self or others. Onset of symptoms was April 12, 2023. 11:08 Method Of Arrival: EMS: [facility] 11:08 Acuity: KEMI 3 kc6 Triage Assessment: 11:10 General: Appears in no apparent distress. uncomfortable, well groomed, well developed, [facility] Behavior is calm, cooperative, appropriate for age. Pain: Complains of pain in chest. EENT: No signs and/or symptoms were reported regarding the EENT system. Neuro: Level of Consciousness is awake, alert, obeys commands, Oriented to person, place, time, situation, Appropriate for age. Cardiovascular: Reports chest pain, Heart tones S1 S2 present Capillary refill < 3 seconds. Respiratory: Reports shortness of breath at rest on exertion Airway is patent Trachea midline Respiratory effort is even, labored, Respiratory pattern is regular, symmetrical. GI: No signs and/or symptoms were reported involving the gastrointestinal system. : No signs and/or symptoms were reported regarding the genitourinary system. Derm: No signs and/or symptoms reported regarding the dermatologic system. Skin is intact, is healthy with good turgor, Skin is pink, warm \T\ dry. Musculoskeletal: No signs and/or symptoms reported regarding the musculoskeletal system. Circulation, motion, and sensation intact. Capillary refill < 3 seconds, Range of motion: intact in all extremities. 13:27 Respiratory: Onset: The symptoms/episode began/occurred Since last Sunday, the me1 patient has mild shortness of breath. Historical: - Allergies: 11:10 PENICILLINS; kc6 - PMHx: 11:10 Migraines; Anxiety; Depressive disorder; Bipolar disorder; kc6 - PSHx: 11:10 None; kc6 - Immunization history:: Adult Immunizations up to date. - Social history:: Smoking status: Patient denies any tobacco usage or history of. - Family history:: not pertinent. Screenin:11 [facility] ED Fall Risk Assessment (Adult) History of falling in the last 3 months, kc6 including since admission No falls in past 3 months (0 pts) Confusion or Disorientation No (0 pts) Intoxicated or Sedated No (0 pts) Impaired Gait No (0 pts) Mobility Assist Device Used No (0 pt) Altered Elimination No (0 pt) Score/Fall Risk Level 0 - 2 = Low Risk. Abuse screen: Denies threats or abuse. Denies injuries from another. Nutritional screening: No deficits noted. Tuberculosis screening: No symptoms or risk factors identified. Assessment: 11:12 Reassessment: please see triage assessment. [facility] 11:51 Reassessment: Patient appears in no apparent distress at this time. No changes from 6 previously documented assessment. Patient and/or family updated on plan of care and expected duration. Pain level reassessed. Patient is alert, oriented x 3, equal unlabored respirations, skin warm/dry/pink. 12:45 Reassessment: Patient appears in no apparent distress at this time. No changes from kc6 previously documented assessment. Patient and/or family updated on plan of care and expected duration. Pain level reassessed. Patient is alert, oriented x 3, equal unlabored respirations, skin warm/dry/pink. 13:12 Reassessment: Patient appears in no apparent distress at this time. No changes from 6 previously documented assessment. Patient and/or family updated on plan of care and expected duration. Pain level reassessed. Patient is alert, oriented x 3, equal unlabored respirations, skin warm/dry/pink. 13:25 Respiratory: Airway is patent Respiratory effort is even, unlabored, Respiratory me1 pattern is regular, symmetrical, Breath sounds are clear bilaterally. Vital Signs: 11:08 BP 131 / 87; Pulse 94; Resp 20 S; Temp 98.5(O); Pulse Ox 100% on R/A; Weight 123.83 kg kc6 (R); Height 5 ft. 4 in. (R); 11:51 BP 147 / 81; Pulse 91; Resp 18 S; Pulse Ox 98% on R/A; kc6 11:08 Body Mass Index 46.86 (123.83 kg, 162.56 cm) kc6 ED Course: 11:02 Patient arrived in ED. ty 11:05 Sam Lechuga MD is Attending Physician. steven 11:08 Luana Hook, GERALDO is Primary Nurse. kc6 11:09 Triage completed. kc6 11:10 Arm band placed on. kc6 11:11 Patient maintains SpO2 saturation greater than 95% on room air. kc6 11:12 Patient has correct armband on for positive identification. Bed in low position. Call kc6 light in reach. Side rails up X 1. Client placed on continuous cardiac and pulse oximetry monitoring. NIBP monitoring applied. 11:23 XRAY Chest (1 view) In Process Unspecified. EDMS 11:33 Inserted saline lock: 20 gauge in right antecubital area, using aseptic technique. kc6 Blood collected. 12:23 CT Chest For PE Angio In Process Unspecified. EDMS 12:57 Thomas Helms MD is Referral Physician. steven 13:25 No provider procedures requiring assistance completed. IV discontinued, intact, me1 bleeding controlled, No redness/swelling at site. Pressure dressing applied. 13:26 Provided Education on: POC. Verbalized understanding.. me1 Administered Medications: 11:33 Drug: NS 0.9% IV 1000 ml IV at 1 bolus Per protocol; 1000 mL bolus Route: IV; Rate: 1 kc6 bolus; Site: right antecubital; 13:28 Follow up: IV Status: Completed infusion me1 11:33 Drug: AZITHromycin PO 500 mg PO once Route: PO; kc6 12:46 Follow up: Response: No adverse reaction kc6 11:33 Drug: Famotidine PO 40 mg PO once Route: PO; kc6 12:46 Follow up: Response: No adverse reaction kc6 11:33 Drug: Aspirin PO Chewable Tablet 162 mg PO once Route: PO; kc6 12:46 Follow up: Response: No adverse reaction kc6 11:33 Drug: predniSONE PO 60 mg PO once Route: PO; kc6 12:46 Follow up: Response: No adverse reaction kc6 11:33 Drug: MethylPrednisoLONE IVP 125 mg IVP once Route: IVP; Site: right antecubital; kc6 12:46 Follow up: Response: No adverse reaction kc6 Medication: 13:27 VIS not applicable for this client. me1 Outcome: 12:57 Discharge ordered by . steven 13:25 Discharged to home ambulatory, me1 13:25 Condition: stable 13:25 Discharge instructions given to patient, Instructed on discharge instructions, follow up and referral plans. Demonstrated understanding of instructions, follow-up care, medications, Prescriptions given X 13:27 Patient left the ED. me1 Signatures: Dispatcher [employer] EDSam Matias MD MD cha Campbell, Kaitlyn, RN RN kc6 Lucero Zhao RN RN me1 Bin Holman Corrections: (The following items were deleted from the chart) 11:52 11:51 BP 112 / 61; Pulse 95bpm; Resp 18bpm; Spontaneous; Pulse Ox 94% RA; kc6 kc6
--- NOTE | 2023-04-12 13:05 | RAD REPORT ---
EXAM DESCRIPTION: CT - Chest For Pe Angio - 04/12/2023 12:22 pm CLINICAL HISTORY: Chest pain COMPARISON: None. TECHNIQUE: Dynamically enhanced axial 3 mm thick images of the chest were obtained during administra tion of 100 mL Isovue 370 IV contrast. Coronal and oblique reconstruction images were generated and r eviewed. Exam utilizes a protocol for optimal evaluation of pulmonary arterial tree. Maximum intensity projections 3D imaging was utilized All CT scans are performed using dose optimization technique as appropriate and may include automated exposure control or mA/KV adjustment according to patient size. FINDINGS: Very suboptimal opacification of the pulmonary arteries. No gross pulmonary embolus visual ized but could be missed A thoracic aortic aneurysm is not noted. A pleural effusion is not seen. A pericardial effusion is not seen. A lung consolidation is not present. IMPRESSION: Very suboptimal opacification of the pulmonary arteries. No gross pulmonary embolus visu alized but could be missed
[2023-04-12 15:30] VITALS: BP 147/81; TEMP 98.5; O2SAT 98
--- NOTE | 2023-04-16 17:08 | EKG ---
Test Date: 2023-04-12 Test Time: 11:17:07 [employer]: NISHA MEASUREMENT RESULTS: Intervals: Rate: 72 NM: 102 QRSD: 76 QT: 380 QTc: 416 [place]: P: 60 NM: 102 QRS: 46 T: 16 INTERPRETIVE STATEMENTS: Sinus rhythm with short NM Otherwise normal ECG No previous ECG available for comparison Electronically Signed On 04-16-23 16:56:31 [employer] by Raymundo Valentine
== END ==
LOC: ER 10:50
DX: U07.1 COVID-19 (principal); J06.9 Acute upper respiratory infection, unspecified; R05.9 Cough, unspecified; F41.9 Anxiety disorder, unspecified; F32.A Depression, unspecified; G43.909 Migraine, unspecified, not intractable, without status migrainosus; Z88.0 Allergy status to penicillin
CPT/HCPCS: 36415; 71045; 71275; 80048; 80076; 83735; 83880; 84484; 85025; 85379; 86140; 93005; 96361; 96374; 99285; J2930; J7030; J7512; Q9967

== ENCOUNTER 2024-02-24 18:02 | Emergency (ER) | payer OTHER ==
--- NOTE | 2024-02-24 19:41 | RAD REPORT ---
EXAMINATION: TWO VIEW CHEST XR CLINICAL INDICATION: COUGH TECHNIQUE: 2 views of the chest was performed. COMPARISON: No prior exam. FINDINGS: The lungs are well inflated and clear. The heart is normal in size. No displaced fractures evident. IMPRESSION: No acute or significant abnormalities.
--- NOTE | 2024-02-24 19:58 | ER ---
Nurse's Notes [facility] Name: Maddi Silva Age: 29 yrs Sex: Female : 1995 Arrival Date: 02/24/2024 Time: 18:02 Bed DX4 Private MD: Diagnosis: Acute tonsillitis, unspecified;Cough Presentation: 02/23 18:21 Chief complaint: Patient states: sore throat, ear pain and congestion x 6 days. Dx with ss RSV at [facility] ER. Coronavirus screen: Client denies travel out of the [place] in the last 14 days. Ebola Screen: Patient denies exposure to infectious person. Patient denies travel to an Ebola-affected area in the 21 days before illness onset. Initial Sepsis Screen: Does the patient meet any 2 criteria? No. Patient's initial sepsis screen is negative. Does the patient have a suspected source of infection? No. Patient's initial sepsis screen is negative. Risk Assessment: Do you want to hurt yourself or someone else? Patient reports no desire to harm self or others. Onset of symptoms was February 18, 2024. 18:21 Method Of Arrival: Ambulatory ss 18:21 Acuity: KEMI 4 ss Historical: - Allergies: 18:24 PENICILLINS; ss - PMHx: 18:24 Anxiety; Bipolar disorder; depressive disorder; Migraines; ss - Immunization history:: Adult Immunizations up to date. - Infectious Disease History:: Denies. - Social history:: Smoking status: Patient denies any tobacco usage or history of. Screenin:30 [facility] ED Fall Risk Assessment (Adult) History of falling in the last 3 months, lg3 including since admission No falls in past 3 months (0 pts) Confusion or Disorientation No (0 pts) Intoxicated or Sedated No (0 pts) Impaired Gait No (0 pts) Mobility Assist Device Used No (0 pt) Altered Elimination No (0 pt) Score/Fall Risk Level 0 - 2 = Low Risk Oriented to surroundings, Maintained a safe environment, Educated pt \T\ family on fall prevention, incl call for assistance when getting out of bed, Assessed \T\ reinforced patient's understanding of fall precautions. Abuse screen: Denies threats or abuse. Denies injuries from another. Nutritional screening: No deficits noted. Tuberculosis screening: No symptoms or risk factors identified. Assessment: 20:30 General: Appears in no apparent distress. comfortable, Behavior is calm, cooperative. lg3 Pain: Complains of pain in right ear, throat. Neuro: No deficits noted. Diaz Agitation-Sedation Scale (RASS): 0 - Alert and Calm Level of Consciousness is awake, alert, obeys commands, Oriented to person, place, time, situation. Cardiovascular: No deficits noted. Denies chest pain, shortness of breath, Capillary refill < 3 seconds Clubbing of nail beds is absent JVD is absent Patient's skin is warm and dry. Respiratory: Reports cough that is Airway is patent Respiratory effort is even, unlabored, Respiratory pattern is regular, symmetrical, Breath sounds are clear bilaterally. GI: No deficits noted. No signs and/or symptoms were reported involving the gastrointestinal system. : No signs and/or symptoms were reported regarding the genitourinary system. EENT: Throat is clear Reports pain when swallowing. Derm: No deficits noted. No signs and/or symptoms reported regarding the dermatologic system. Skin is intact, is healthy with good turgor, Skin is dry, Skin is normal, Skin temperature is warm. Musculoskeletal: No deficits noted. No signs and/or symptoms reported regarding the musculoskeletal system. Circulation, motion, and sensation intact. Range of motion: intact in all extremities. Vital Signs: 18:21 BP 121 / 82; Pulse 87; Resp 16; Temp 97.4(TE); Pulse Ox 100% on R/A; Weight 112.49 kg; ss Height 5 ft. 5 in. ; Pain 7/10; 20:30 BP 126 / 81; Pulse 81; Resp 17 S; Temp 97.6(O); Pulse Ox 100% on R/A; lg3 18:21 Body Mass Index 41.27 (112.49 kg, 165.1 cm) ss 18:21 Pain Scale: Adult ss ED Course: 18:05 Patient arrived in ED. mr 18:16 Sam Vernon PA is PHCP. cp 18:16 Sam Lechuga MD is Attending Physician. cp 18:24 Triage completed. ss 18:24 Arm band placed on right wrist. ss 19:31 XRAY Chest Pa And Lat (2 Views) In Process Unspecified. EDMS 20:30 Patient has correct armband on for positive identification. lg3 20:30 No provider procedures requiring assistance completed. Patient did not have IV access lg3 during this emergency room visit. Administered Medications: 20:21 Drug: Tussionex Pennkinetic ER PO Suspension 5 ml PO once Route: PO; lg3 20:33 Follow up: Response: No adverse reaction lg3 20:21 Drug: GI Cocktail without - (Maalox PO 30 ml, Lidocaine Mucous Membrane 2 % 15 lg3 ml) PO once Route: PO; 20:32 Follow up: Response: No adverse reaction lg3 Medication: 20:30 VIS not applicable for this client. lg3 Outcome: 19:58 Discharge ordered by . caprice 20:30 Discharged to home ambulatory, lg3 20:30 Condition: stable 20:30 Discharge instructions given to patient, Instructed on discharge instructions, follow up and referral plans. medication usage, Demonstrated understanding of instructions, follow-up care, medications, Prescriptions given X 4, 20:33 Patient left the ED. lg3 Signatures: Dispatcher [employer] EDVA SilvaCitlalli rodriguez, Reg Khoa mr Nicci Casas, RN RN Sam Hwang PA PA cp Able, Lacie, GERALDO RN lg3
--- NOTE | 2024-02-24 19:58 | EDPHYS ---
Physician Documentation [facility] Name: Maddi Silva Age: 29 yrs Sex: Female : 1995 Arrival Date: 02/24/2024 Time: 18:02 Bed DX4 Private MD: ED Physician Sam Lechuga HPI: 02/23 18:39 This 29 yrs old Black Female presents to ER via Ambulatory with complaints of RSV+, cp Sore Throat, Ear Pain. 18:39 Patient reports she tested positive for RSV this past Sunday and had negative strep cp test earlier today at [facility]. 18:39 Associated signs and symptoms: Pertinent positives: congestion, cough, fever, sore cp throat, body aches, Pertinent negatives: abdominal pain, chest pain, diarrhea, vomiting. Historical: - Allergies: 18:24 PENICILLINS; ss - PMHx: 18:24 Anxiety; Bipolar disorder; depressive disorder; Migraines; ss - Immunization history:: Adult Immunizations up to date. - Infectious Disease History:: Denies. - Social history:: Smoking status: Patient denies any tobacco usage or history of. ROS: 18:45 Constitutional: Positive for body aches, Negative for fever, poor PO intake, cp 18:45 Eyes: Negative for injury, pain, redness, and discharge, cp 18:45 ENT: Positive for ear pain, sore throat, Negative for drainage from ear(s), difficulty swallowing, difficulty handling secretions, 18:45 Cardiovascular: Negative for chest pain, 18:45 Respiratory: Positive for cough, Negative for shortness of breath, wheezing, 18:45 Abdomen/GI: Negative for abdominal pain, nausea and vomiting, diarrhea, constipation, 18:45 Skin: Negative for rash, 18:45 Neuro: Negative for altered mental status, dizziness, headache, weakness, 18:45 All other systems are negative, Exam: 18:50 Constitutional: The patient appears in no acute distress, alert, awake, non-toxic, well cp developed, well nourished, obese, 18:50 Head/Face: Normocephalic, atraumatic. cp 18:50 Eyes: Periorbital structures: appear normal, Conjunctiva: normal, no exudate, no injection, Sclera: no appreciated abnormality, Lids and lashes: appear normal, bilaterally, 18:50 ENT: External ear(s): are unremarkable, Ear canal(s): are normal, clear, TM's: bulging, is not appreciated, bilaterally, erythema, is not appreciated, bilaterally, Nose: is normal, Mouth: Lips: moist, Oral mucosa: moist, Posterior pharynx: Tonsils: with erythema, with exudate, mild enlargement, Uvula: midline, erythema, that is mild, Voice: is normal, 18:50 Neck: ROM/movement: limited range of motion, is not appreciated, Meningeal signs: are not present, nuchal rigidity, is not appreciated, 18:50 Chest/axilla: Inspection: normal, 18:50 Cardiovascular: Rate: normal, 18:50 Respiratory: the patient does not display signs of respiratory distress, Respirations: normal, no use of accessory muscles, no retractions, labored breathing, is not present, Breath sounds: are clear throughout, no decreased breath sounds, no stridor, no wheezing, 18:50 Abdomen/GI: Exam negative for discomfort, distension, guarding, Inspection: abdomen appears normal, Vital Signs: 18:21 BP 121 / 82; Pulse 87; Resp 16; Temp 97.4(TE); Pulse Ox 100% on R/A; Weight 112.49 kg; ss Height 5 ft. 5 in. ; Pain 7/10; 20:30 BP 126 / 81; Pulse 81; Resp 17 S; Temp 97.6(O); Pulse Ox 100% on R/A; lg3 18:21 Body Mass Index 41.27 (112.49 kg, 165.1 cm) 18:21 Pain Scale: Adult ss MDM: 18:21 Medical Screening Exam initiated cp 19:58 Data reviewed: vital signs, nurses notes, radiologic studies, plain films, and as a cp result, I will discharge patient. 19:58 Differential diagnosis: viral Infection, bacterial infection, bronchitis, pneumonia. I cp considered the following discharge prescriptions or medication management in the emergency department Medications were administered in the Emergency Department. See MAR. Counseling: I had a detailed discussion with the patient and/or guardian regarding the historical points, exam findings, and any diagnostic results supporting the discharge/admit diagnosis, radiology results, to return to the emergency department if symptoms worsen or persist or if there are any questions or concerns that arise at home. Response to treatment: the patient's symptoms have mildly improved after treatment, and as a result, I will discharge patient. 02/23 18:41 Order name: XRAY Chest Pa And Lat (2 Views); Complete Time: 19:43 cp 02/23 19:43 Interpretation: Report reviewed. cp Administered Medications: 20:21 Drug: Tussionex Pennkinetic ER PO Suspension 5 ml PO once Route: PO; lg3 20:33 Follow up: Response: No adverse reaction lg3 20:21 Drug: GI Cocktail without - (Maalox PO 30 ml, Lidocaine Mucous Membrane 2 % 15 lg3 ml) PO once Route: PO; 20:32 Follow up: Response: No adverse reaction lg3 Disposition Summary: 02/24/24 19:58 Discharge Ordered Notes: Location: Home cp Problem: new cp Symptoms: have improved cp Condition: Stable cp Diagnosis - Acute tonsillitis, unspecified cp - Cough cp Followup: cp - With: Private Physician - When: 2 - 3 days - Reason: Worsening of condition Discharge Instructions: - Discharge Summary Sheet cp - Tonsillitis cp - Cough, Adult cp Forms: - Medication Reconciliation Form cp - Antibiotic Education cp - Prescription Opioid Use cp - Patient Portal Instructions cp - Leadership Thank You Letter cp - Work release form vk Prescriptions: - Bromfed DM 2-30-10 mg/5 mL Oral syrup - administer 10 milliliter ORAL route every 6-8 hours as needed for cold cp symptoms; 240 milliliter; Refills: 0, Product Selection Permitted - Lidocaine Viscous - take 5 milliliter ORAL route every 4-6 hours; 120 milliliter; Refills: 0, cp Product Selection Permitted - clarithromycin 500 mg Oral tablet - take 1 tablet ORAL route every 12 hours for 10 days; 20 tablet; Refills: 0, cp Product Selection Permitted - Anaprox DS 550 mg Oral Tablet - take 1 tablet ORAL route every 12 hours As needed; 20 tablet; Refills: 0, cp Product Selection Permitted Signatures: Dispatcher [employer] Nicci Gilliam RN RN Sam Hwang PA PA cp Able, Lacie RN RN lg3
[2024-02-24] MEDS ORDERED: LIDOCAINE VISCOUS 2% 10ML ORAL SOLN ONE (20:02)
[2024-02-24] MEDS ORDERED: HYDROCODONE/CHLORPHEN 5 ML/OSYR ONE (20:02)
[2024-02-24] MEDS ORDERED: MAGNES/ALUMIN/SIMET 30ML UCUP ONE (20:02)
[2024-02-24 23:14] VITALS: O2SAT 100
[2024-02-24 23:15] VITALS: BP 126/81; TEMP 97.6
== END 2024-02-24 20:33 | disposition home or self-care (01) ==
LOC: ER 18:02
DX: J03.90 Acute tonsillitis, unspecified (principal); R05.9 Cough, unspecified
CPT/HCPCS: 71046; 99283